=== PATIENT | male | born 1950 | race Caucasian/White ===

== ENCOUNTER 2016-07-16 06:59 | Inpatient (IN) | payer BC, MEDICARE ==
[2016-07-16] MEDS ORDERED: Aspirin 325 mg EC Tablets PO STA (07:18)
[2016-07-16 07:46] LABS: BASO % 0.7 % (0.0-2.0); EOS # 0.1 K/uL (0.0-0.7); MEAN CELL VOLUME 104.9 fL (80.0-94.0); MEAN CORPUSCULAR HEMOGLOBIN 35.9 pg (27.0-31.0); MEAN CORPUSCULAR HGB CONC 34.2 g/dL (33.0-37.0); MEAN PLATELET VOLUME 7.3 fL (7.2-11.7); MONO # 0.6 K/uL (0.0-0.8); MONO % 12.8 % (0.0-10.0); RED CELL DISTRIBUTION WIDTH 13.6 % (11.5-14.5); WHITE BLOOD COUNT 4.5 K/uL (4.8-10.8)
[2016-07-16 07:54] LABS: CHLORIDE 103 mmol/L (98-107)
[2016-07-16 07:55] LABS: POTASSIUM 4.4 mmol/L (3.6-5.2); SODIUM 138 mmol/L (132-148)
[2016-07-16 07:57] LABS: BILIRUBIN,TOTAL 0.8 mg/dL (0.2-1.3); CARBON DIOXIDE 29 mmol/L (22-30); GFR AFRICAN-AMERICAN > 60
[2016-07-16 07:58] LABS: ALB/GLOB RATIO 1.3 (1.0-2.1); ALKALINE PHOSPHATASE 62 U/L (38-126); ALT/SGPT 23 U/L (21-72); AST/SGOT 40 U/L (17-59); BLOOD UREA NITROGEN 15 mg/dL (9-20); GLUCOSE,RANDOM 88 mg/dL (75-110); TOTAL PROTEIN 7.1 g/dL (6.3-8.3)
--- NOTE | 2016-07-16 08:29 | RAD ---
PROCEDURE: CHEST RADIOGRAPH, 1 VIEW HISTORY: chest pain COMPARISON: 04/08/2015 FINDINGS: LUNGS: Clear. PLEURA: No pneumothorax or pleural fluid seen. CARDIOVASCULAR: Normal. OSSEOUS STRUCTURES: No significant abnormalities. VISUALIZED UPPER ABDOMEN: Normal. OTHER FINDINGS: None. IMPRESSION: No active disease.
[2016-07-16] MEDS ORDERED: Enoxaparin 150 mg Syringe SC STA (09:04)
[2016-07-16] MEDS ORDERED: Enoxaparin 80 mg Syringe ONE (09:12)
--- NOTE | 2016-07-16 09:52 | CP.PCM.HP ---
<Sugar Pratibha PERALTA - Last Filed: 07/16/16 10:25> History of Present Illness - History of Present Illness History of Present Illness: Patient is a 65 year old male who presents to the ED with complaint of chest pain. Patient states he had chest pain yesterday morning around 10AM while at working. He states he felt a sharp pain in his chest that lasted approximately one hour before he was able to get home to take his sublingual nitroglycerin. Patient states after taking the nitro, his pain subsided. Patient states he felt the pain again this morning around 5:20AM and again took the sublingual nitro. Patient states that the pain felt very strong but denies a stabbing pain, pressure, or squeezing sensation. Patient states the chest pain subsided after taking the nitro this morning but because it was the second day in a row with chest pain he came to the ED. Patient states he had similar pain 6 months ago, which resolved with sublingual nitro. Patient denies diaphoresis, light headedness, dizziness, palpitations, shortness of breath, orthopnea, nausea, vomiting, fever, chills, leg pain, leg swelling. PMD: Dr. Burris Geology Associate: Dr. Ralph Louie [phone]- last saw on 04/22, future appointment 07/30 Allergies: none PMH: a.fib, multiple blocked arteries requiring stenting, TIA Home meds: nitro 0.4 sublingual, xarelto 20mg, losartan 25mg, atorvastatin 80mg , clopidogrel 75mg, metoprolol succinate 25mg, ASA 81mg PSH: appendectomy age 17, 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 absent: Chest Pain with Activity, Diaphoresis, Dyspnea, Dyspnea on Exertion, Leg Edema, Lightheadedness, Orthopnea, Paroxysmal Nocturnal Dyspnea, Rapid Heart Rate, Slow Heart Rate, Syncope - Respiratory Respiratory: absent: Cough, Dyspnea - Gastrointestinal Gastrointestinal: absent: Abdominal Pain, Diarrhea, Nausea, Vomiting - Genitourinary Genitourinary: absent: Dysuria - Musculoskeletal Musculoskeletal: absent: Back Pain - Neurological Neurological: absent: Dizziness, Weakness - Psychiatric Psychiatric: absent: Abnormal Sleep Pattern Past Patient History - Past Social History Smoking Status: Never Smoked - CARDIAC Hx Cardiac Disorders: Yes Hx Hypertension: Yes - PULMONARY Hx Respiratory Disorders: No - NEUROLOGICAL Hx Neurological Disorder: No - HEENT Hx HEENT Problems: No - RENAL Hx Chronic Kidney Disease: No - ENDOCRINE/METABOLIC Hx Endocrine Disorders: No - HEMATOLOGICAL/ONCOLOGICAL Hx Blood Disorders: No - INTEGUMENTARY Hx Dermatological Problems: No - MUSCULOSKELETAL/RHEUMATOLOGICAL Hx Musculoskeletal Disorders: No Hx Falls: No - GASTROINTESTINAL Hx Gastrointestinal Disorders: No - GENITOURINARY/GYNECOLOGICAL Hx Genitourinary Disorders: No - PSYCHIATRIC Hx Psychophysiologic Disorder: No Hx Substance Use: No - SURGICAL HISTORY Hx Surgeries: Yes Hx Appendectomy: Yes - ANESTHESIA Hx Anesthesia: Yes Hx Anesthesia Reactions: No Meds Allergies/Adverse Reactions: Allergies Allergy/AdvReac Type Severity Reaction Status Date / Time No Known Allergies Allergy Verified 07/16/16 07:06 Physical Exam - Constitutional Appears: Non-toxic, No Acute Distress - Head Exam Head Exam: ATRAUMATIC, NORMOCEPHALIC - Eye Exam Eye Exam: EOMI Additional comments: cataracts - Neck Exam Additional comments: no carotid bruit - Respiratory Exam Respiratory Exam: Clear to Auscultation Bilateral, NORMAL BREATHING PATTERN - Cardiovascular Exam Cardiovascular Exam: +S1, +S2 - GI/Abdominal Exam GI & Abdominal Exam: Normal Bowel Sounds, Soft. absent: Tenderness - Extremities Exam Extremities exam: Negative for: pedal edema, tenderness - Neurological Exam Neurological exam: Alert, Oriented x3 - Psychiatric Exam Psychiatric exam: Normal Affect - Skin Skin Exam: Dry, Warm Results - Vital Signs Recent Vital Signs: Last Vital Signs Temp 98 F 07/16/16 07:05 Pulse 65 07/16/16 09:40 Resp 18 07/16/16 09:40 BP 133/79 07/16/16 09:40 Pulse Ox 98 07/16/16 09:40 - Labs Result Diagrams: 07/16/16 07:39 07/16/16 07:39 Assessment & Plan (1) NSTEMI (non-ST elevated myocardial infarction) Assessment and Plan: admit to telemetry EKG performed in ER with atrial fibrillation, rate of 67 first troponin 0.7490, will continue to trend with EKGs 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- help appreciated patient given ASA 325mg and lovenox 70mg in the ER- will continue therapeutic lovenox 70mg q12h ASA 81mg starting tomorrow AM sublingual nitro prn will check lipid panel, TSH, A1c Status: Acute (2) CAD (coronary artery disease) Assessment and Plan: continue home med clopidogrel 75mg Status: Acute (3) A-fib Assessment and Plan: holding home med xarelto 20mg daily as patient is getting therapeutic lovenox will monitor on telemetry Status: Chronic (4) HTN (hypertension) Assessment and Plan: continue home med losartan 25mg daily, metoprolol succinate 25mg daily Status: Acute (5) HLD (hyperlipidemia) Assessment and Plan: continue equivalent for home med atorvastatin 80mg daily- crestor 40mg daily Status: Acute (6) Prophylactic measure Assessment and Plan: therapeutic lovenox 70mg q12h SCDs Status: Acute <Hugo Nava M - Last Filed: 07/16/16 14:25> Results - Vital Signs Recent Vital Signs: Last Vital Signs Temp 97.3 F L 07/16/16 10:25 Pulse 60 07/16/16 10:25 Resp 18 07/16/16 10:25 BP 144/92 H 07/16/16 10:25 Pulse Ox 99 07/16/16 10:25 - Labs Result Diagrams: 07/16/16 07:39 07/16/16 07:39 Attending/Attestation - Attestation I have personally seen and examined this patient.: Yes I have fully participated in the care of the patient.: Yes I have reviewed all pertinent clinical information: Yes Notes (Text): 07/16/16 14:24 Patient was seen and examined at bedside with the resident at the time of admission We will admit the patient to telemetry unit We will start the ACS protocol We have requested cardiology evaluation and we will follow up recommendations I discussed the plan of care with the resident and agree with the above history and physical and assessment/plan.
--- NOTE | 2016-07-16 09:59 | C.PDOC ---
History Of Present Illness 65-year-old male, PMHx includes atrial fibrillation and stent placement in 2016 , presents to the emergency department with complaints of an episode of chest pain last night. Patient states he took sublingual nitro this morning with relief. No pain in ED. Denies fevers, nausea/vomiting, cough or shortness of breath. Digital Artist Ralph Louie MD. Chief Complaint (Nursing): Chest Pain History Per: Patient History/Exam Limitations: no limitations Past Medical History Reviewed: Historical Data, Nursing Documentation, Vital Signs Vital Signs: Last Vital Signs Temp 98.4 F 07/16/16 16:00 Pulse 58 L 07/16/16 17:10 Resp 12 07/16/16 17:10 BP 112/73 07/16/16 17:09 Pulse Ox 97 07/16/16 17:10 - Medical History PMH: HTN Denies: Chronic Kidney Disease Surgical History: Appendectomy Family History: States: No Known Family Hx - Social History Hx Alcohol Use: No (2-3 beers daily) Hx Substance Use: No - Immunization History Hx Tetanus Toxoid Vaccination: No Hx Influenza Vaccination: No Hx Pneumococcal Vaccination: No Review Of Systems Except As Marked, All Systems Reviewed And Found Negative. Constitutional: Negative for: Fever, Chills Cardiovascular: Positive for: Chest Pain Respiratory: Negative for: Shortness of Breath Gastrointestinal: Negative for: Nausea, Vomiting Neurological: Negative for: Weakness, Numbness, Headache, Dizziness Physical Exam - Physical Exam Appears: Non-toxic, No Acute Distress Skin: Warm, Dry, No Rash Head: Atraumatic, Normacephalic Eye(s): bilateral: Normal Inspection Nose: Normal Neck: Normal ROM Cardiovascular: Rhythm Regular, No Murmur Respiratory: Normal Breath Sounds, No Accessory Muscle Use Gastrointestinal/Abdominal: Soft, No Tenderness Extremity: Normal ROM Neurological/Psych: Oriented x3 ED Course And Treatment - Laboratory Results Result Diagrams: 07/16/16 07:39 07/16/16 07:39 ECG: Interpreted By Me, Viewed By Me ECG Rhythm: Atrial Fibrillation ECG Interpretation: No Acute Changes Rate From EC O2 Sat by Pulse Oximetry: 98 (on RA) Progress Note: Patient troponin found to be elevated. Case discussed w/ Dr Nava , states he will admit patient under his service, and to call cardiology on- call (Dr Robert) for consult. Case also discussed with patients compliance consultant Dr Louie, who states patients compliance with medication is questionable. Disposition - Disposition Disposition: HOSPITALIZED Disposition Time: 08:40 Condition: GOOD - Clinical Impression Clinical Impression: Chest pain, Elevated troponin - [facility] Statement Maci Heath All medical record entries made by the [facility] were at my direction and personally dictated by me. I have reviewed the chart and agree that the record accurately reflects my personal performance of the history, physical exam, medical decision making, and the department course for this patient. I have also personally directed, reviewed, and agree with the discharge instructions and disposition.
[2016-07-16] MEDS: Metoprolol Succinate 25 mg XL Tab PO SCH (11:20)
--- NOTE | 2016-07-16 12:03 | CP.PCM.CON ---
<Juan Parham - Last Filed: 07/16/16 14:51> History of Present Illness - History of Present Illness History of Present Illness: Critical Care Consultation Note Dr. Avila CC: Chest Pain x 1 day HPI: This is a 65 year old male with a PMH notable for Afib, TIA, and triple vessel disease presenting for critical care evaluation of bradycardia. The patient is also noted to have elevated troponins. The patient notes that he has had two episodes of chest pain both relieved with sublingual nitroglycerine. At the onset, the patient states he was running 3 blocks to work yesterday (07/15/16) when he started to experience mid-sternal chest pain. Patient states he went back home and used sublingual nitroglycerin with full relief of the pain. He woke up this morning experiencing another episode of chest pain, which did not resolve fully with sublingual nitro. Patient describes the chest pain as mid-sternal, sharp pain with burning sensation, non- radiating. Patient states each episode lasted around 20 minutes and denies any change with position, respiration, and palpation. Patient denies N/V, diaphoresis, leg swelling or SOB. Patient had similar episode 6 months ago, which relieved with sublingual nitro. Patient reports that he takes aspirin 81mg every morning and is compliant with his medications. Patient last saw his mixer blender, Dr. Ralph Louie. on June 20. Presently, the patient denies fever, chills, chest pain, SOB, abdominal pain, N/V/D/C, changes in bowel/ bladder, and extremity paresthesias. Surgical hx: Appendectomy; triple vessel stenting (one year ago) PMH: Afib, triple vessel disease (CAD), TIA (2016), HTN Allergies: NKDA Home meds: sublingual nitro 0.4; xarelto 20mg; losartan 25mg, atorvastatin 80mg ; clopidogrel 75 mg, metoprolol succinate 25mg, ASA 81mg Social: Denies tobacco use, denies illicit drug use. Patient states he used to drink alcohol every weekend, but stopped 3 months ago. 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 Zhang Louie Review of Systems - Constitutional Constitutional: absent: Chills, Fatigue, Fever - EENT Eyes: absent: Blurred Vision, Change in Vision Ears: absent: Decreased Hearing, Tinnitus Nose/Mouth/Throat: absent: Nose Pain, Facial Pain, Neck Pain - Cardiovascular Cardiovascular: Chest Pain. absent: Pain Radiating to Arm/Neck/Jaw, Orthopnea, Palpitations, Paroxysmal Nocturnal Dyspnea, Rapid Heart Rate, Syncope - Respiratory Respiratory: absent: Cough, Dyspnea, Dyspnea on Exertion - Gastrointestinal Gastrointestinal: absent: Abdominal Pain, Constipation, Diarrhea, Nausea, Vomiting - Genitourinary Genitourinary: absent: Change in Urinary Stream, Difficulty Urinating - Musculoskeletal Musculoskeletal: absent: Arthralgias, Myalgias, Stiffness, Tingling - Integumentary Integumentary: absent: Lesions, Rash, Wounds - Neurological Neurological: absent: Dizziness, Frequent Falls, Headaches, Sensory Deficit, Syncope, Tingling, Tremor, Vertigo, Weakness - Endocrine Endocrine: absent: Cold Intolorance, Heat Intolorance Past Patient History - Past Medical History & Family History Past Medical History?: Yes - Past Social History Smoking Status: Never Smoked - CARDIAC Hx Cardiac Disorders: Yes Hx Atrial Fibrillation: Yes Hx Hypertension: Yes Other/Comment: multiple blocked arteries, had coronary stent placement - PULMONARY Hx Respiratory Disorders: No - NEUROLOGICAL Hx Neurological Disorder: No - HEENT Hx HEENT Problems: No - RENAL Hx Chronic Kidney Disease: No - ENDOCRINE/METABOLIC Hx Endocrine Disorders: No - HEMATOLOGICAL/ONCOLOGICAL Hx Blood Disorders: No - INTEGUMENTARY Hx Dermatological Problems: No - MUSCULOSKELETAL/RHEUMATOLOGICAL Hx Musculoskeletal Disorders: No Hx Falls: No - GASTROINTESTINAL Hx Gastrointestinal Disorders: No - GENITOURINARY/GYNECOLOGICAL Hx Genitourinary Disorders: No - PSYCHIATRIC Hx Psychophysiologic Disorder: No Hx Substance Use: No - SURGICAL HISTORY Hx Surgeries: Yes Hx Appendectomy: Yes Hx Coronary Stent: Yes - ANESTHESIA Hx Anesthesia: Yes Hx Anesthesia Reactions: No Meds Allergies/Adverse Reactions: Allergies Allergy/AdvReac Type Severity Reaction Status Date / Time No Known Allergies Allergy Verified 07/16/16 07:06 - Medications Medications: Current Medications Aspirin (Aspirin Chewable) 81 mg PO DAILY [facility] Clopidogrel Bisulfate (Plavix) 75 mg PO DAILY [facility] Last Admin: 07/16/16 11:20 Dose: 75 mg Enoxaparin Sodium (Lovenox) 70 mg SC Q12 [facility] Losartan Potassium (Cozaar) 25 mg PO DAILY [facility] Metoprolol Succinate (Toprol Xl) 25 mg PO DAILY [facility] Last Admin: 07/16/16 11:20 Dose: Not Given Nitroglycerin (Nitrostat Sl Tab) 0.4 mg SL Q5M PRN PRN Reason: Other Rosuvastatin Calcium (Crestor) 40 mg PO HS [facility] Physical Exam - Constitutional Appears: Non-toxic - Head Exam Head Exam: ATRAUMATIC, NORMAL INSPECTION, NORMOCEPHALIC - Eye Exam Eye Exam: EOMI, Normal appearance Pupil Exam: NORMAL ACCOMODATION - ENT Exam ENT Exam: Mucous Membranes Moist. absent: Mucous Membranes Dry - Neck Exam Neck exam: Positive for: Full Rom. Negative for: Lymphadenopathy, Tenderness - Respiratory Exam Respiratory Exam: Clear to Auscultation Bilateral, NORMAL BREATHING PATTERN. absent: Chest Wall Tenderness, Decreased Breath Sounds, Rales, Rhonchi, Wheezes , Stridor - Cardiovascular Exam Cardiovascular Exam: Bradycardia, REGULAR RHYTHM, +S1, +S2. absent: Diastolic murmur, RRR, Systolic Murmur - GI/Abdominal Exam GI & Abdominal Exam: Normal Bowel Sounds, Soft. absent: Distended, Firm, Guarding, Rigid, Tenderness - Extremities Exam Extremities exam: Positive for: normal capillary refill, normal inspection, pedal pulses present. Negative for: joint swelling, pedal edema, tenderness - Back Exam Back exam: NORMAL INSPECTION. absent: CVA tenderness (L), CVA tenderness (R) - Neurological Exam Neurological exam: Alert, CN II-XII Intact, Oriented x3, Reflexes Normal - Skin Skin Exam: Dry, Intact, Normal Color, Warm Results - Vital Signs Recent Vital Signs: Last Vital Signs Temp 97.3 F L 07/16/16 10:25 Pulse 60 07/16/16 10:25 Resp 18 07/16/16 10:25 BP 144/92 H 07/16/16 10:25 Pulse Ox 99 07/16/16 10:25 - Labs Result Diagrams: 07/16/16 07:39 07/16/16 07:39 Assessment & Plan (1) NSTEMI (non-ST elevated myocardial infarction) Status: Acute (2) Bradycardia Status: Acute (3) Elevated troponin level Status: Acute (4) CAD (coronary artery disease) Status: Chronic (5) A-fib Status: Chronic (6) Irregular cardiac rhythm Status: Chronic - Assessment and Plan (Free Text) Plan: Patient status: -Transferred to ICU; hemodynamically stable Neuro: -A&OX3 -stable Cardiovascular: -07/16/16- for cardaic cath with Dr. Dumont (for Dr. Robert) -Dr. Franklin on consult for bradyarrythmia and afib -YOBANI score: 6 (41% risk) -[id number]- 5 (PO anticoagulation indicated >/= 2) -HASBLED- 3 (high risk for PO anticoagulation) -NSTEMI (acute) -cardiology consulted (Dr. Robert) -continue current medications -Trend troponins with EC.7490 > 0.5420 -continue ASA 81mg and sublingual nitro 0.4mg prn -CAD -continue Clopidogrel 75mg -Afib (chronic) -continue ASA 81mg, Lovenox 70mg SC Q12 -HTN (currently 144/92) -continue losartan 25mg PO, metoprolol succinate 25mg PO daily -Pro-BNP wnl (719) -07/16/16 ECG: Afib with slow ventricular response; 58 BPM -07/16/16 ECG: A.fib; 67 BPM -04/08/15 ECHO: LVEF 72%; normal LV systolic function; Normal chamber size; Trace MR; mild TR Pulmonary: -07/16/16 CXR: no active disease; unremarkable. Gastrointestinal: -No acute issues Hematology: -No acute issues Endocrine: -No acute issues Renal: -No acute issues Musculoskeletal: -No acute issues Genitourinary: -No acute issues Infectious disease: -No acute issues GI prophylaxis: Pepcid 20mg PO daily DVT prophylaxis: Lovenox 70mg SC Q12h, SCDs Other prophylaxis: Aspirin 81mg PO daily Case discussed with Dr. Austin Parham PGY1 - Date & Time Date: 07/16/16 Time: 12:03 <Gamaliel Avila - Last Filed: 07/16/16 17:44> Meds - Medications Medications: Current Medications Aspirin (Aspirin Chewable) 81 mg PO DAILY [facility] Clopidogrel Bisulfate (Plavix) 75 mg PO DAILY [facility] Last Admin: 07/16/16 11:20 Dose: 75 mg Enoxaparin Sodium (Lovenox) 70 mg SC Q12 [facility] Famotidine (Pepcid) 20 mg PO DAILY [facility] Losartan Potassium (Cozaar) 25 mg PO DAILY [facility] Metoprolol Succinate (Toprol Xl) 25 mg PO DAILY [facility] Last Admin: 07/16/16 11:20 Dose: Not Given Nitroglycerin (Nitrostat Sl Tab) 0.4 mg SL Q5M PRN PRN Reason: Other Rosuvastatin Calcium (Crestor) 40 mg PO HS [facility] Results - Vital Signs Recent Vital Signs: Last Vital Signs Temp 98.4 F 07/16/16 16:00 Pulse 58 L 07/16/16 17:10 Resp 12 07/16/16 17:10 BP 112/73 07/16/16 17:09 Pulse Ox 97 07/16/16 17:10 - Labs Result Diagrams: 07/16/16 07:39 07/16/16 07:39 Labs: Laboratory Results - last 24 hr 07/16/16 07/16/16 07/16/16 14:05 14:05 16:58 PT 11.2 INR 1.0 APTT 42 H Hemoglobin A1c 5.4 Total Creatine Kinase 101 CK-MB (Mass) 3.17 Troponin I, Quant 0.5420 H* Triglycerides 75 Cholesterol 201 H LDL Cholesterol Direct 147 H HDL Cholesterol 48 Thyroxine (T4) 6.62 TSH 3rd Generation 1.23 Attending/Attestation - Attestation I have personally seen and examined this patient.: Yes I have fully participated in the care of the patient.: Yes I have reviewed all pertinent clinical information: Yes Notes (Text): 07/16/16 17:42 Patient seen and examined. 65-year-old male admitted with chest pain and transferred to ICU for elevated troponins and bradycardia. Status post cardiac cath with patent stents but severe disease of circumflex and RCA continue medical management for now Case discussed with cardiology
--- NOTE | 2016-07-16 12:48 | CP.PCM.CON ---
History of Present Illness - History of Present Illness History of Present Illness: 65 years old with coronary artery disease post percutaneous intervention on multiple occasions with stent deployment, the latest was few weeks ago at [place]. He was admitted through the emergency department with chest pain, no acute EKG changes or arrhythmia, had minimally elevated troponin. The pain returned and he is on aspirin and Plavix in addition to Xarelto for A. fib. Currently he is pain-free with non-ST elevation [place] and high YOBANI score would need to have invasive management. Continue Xarelto for A. fib and DVT prevention , cath was done by dr Bangura, sig circ, NL LV for PCI Review of Systems - Constitutional Constitutional: Weakness - EENT Eyes: absent: Discharge Ears: absent: Ear Discharge, Dizziness Nose/Mouth/Throat: absent: Epistaxis - Cardiovascular Cardiovascular: Chest Pain. absent: Acrocyanosis, Diaphoresis, Palpitations, Syncope - Respiratory Respiratory: absent: Cough, Dyspnea, Hemoptysis - Gastrointestinal Gastrointestinal: absent: Abdominal Pain, Diarrhea, Vomiting - Genitourinary Genitourinary: absent: Change in Urinary Stream Past Patient History - Past Medical History & Family History Past Medical History?: Yes - Past Social History Smoking Status: Never Smoked - CARDIAC Hx Cardiac Disorders: Yes Hx Atrial Fibrillation: Yes Hx Hypertension: Yes Other/Comment: multiple blocked arteries, had coronary stent placement - PULMONARY Hx Respiratory Disorders: No - NEUROLOGICAL Hx Neurological Disorder: No - HEENT Hx HEENT Problems: No - RENAL Hx Chronic Kidney Disease: No - ENDOCRINE/METABOLIC Hx Endocrine Disorders: No - HEMATOLOGICAL/ONCOLOGICAL Hx Blood Disorders: No - INTEGUMENTARY Hx Dermatological Problems: No - MUSCULOSKELETAL/RHEUMATOLOGICAL Hx Musculoskeletal Disorders: No Hx Falls: No - GASTROINTESTINAL Hx Gastrointestinal Disorders: No - GENITOURINARY/GYNECOLOGICAL Hx Genitourinary Disorders: No - PSYCHIATRIC Hx Psychophysiologic Disorder: No Hx Substance Use: No - SURGICAL HISTORY Hx Surgeries: Yes Hx Appendectomy: Yes Hx Coronary Stent: Yes - ANESTHESIA Hx Anesthesia: Yes Hx Anesthesia Reactions: No Meds Allergies/Adverse Reactions: Allergies Allergy/AdvReac Type Severity Reaction Status Date / Time No Known Allergies Allergy Verified 07/16/16 07:06 - Medications Medications: Current Medications Aspirin (Aspirin Chewable) 81 mg PO DAILY [facility] Clopidogrel Bisulfate (Plavix) 75 mg PO DAILY [facility] Last Admin: 07/16/16 11:20 Dose: 75 mg Enoxaparin Sodium (Lovenox) 70 mg SC Q12 [facility] Losartan Potassium (Cozaar) 25 mg PO DAILY [facility] Metoprolol Succinate (Toprol Xl) 25 mg PO DAILY [facility] Last Admin: 07/16/16 11:20 Dose: Not Given Nitroglycerin (Nitrostat Sl Tab) 0.4 mg SL Q5M PRN PRN Reason: Other Rosuvastatin Calcium (Crestor) 40 mg PO HS [facility] Physical Exam - Constitutional Appears: Non-toxic - Head Exam Head Exam: ATRAUMATIC - Eye Exam Eye Exam: EOMI - ENT Exam ENT Exam: Mucous Membranes Moist - Neck Exam Neck exam: Negative for: Lymphadenopathy, Thyromegaly - Respiratory Exam Respiratory Exam: Clear to Auscultation Bilateral. absent: Chest Wall Tenderness, Rales - Cardiovascular Exam Cardiovascular Exam: REGULAR RHYTHM, Systolic Murmur - GI/Abdominal Exam GI & Abdominal Exam: Normal Bowel Sounds. absent: Organomegaly - Rectal Exam Rectal Exam: Deferred - Extremities Exam Extremities exam: Positive for: normal capillary refill. Negative for: calf tenderness - Neurological Exam Neurological exam: Alert, Oriented x3 - Psychiatric Exam Psychiatric exam: Normal Mood - Skin Skin Exam: Dry Results - Vital Signs Recent Vital Signs: Last Vital Signs Temp 97.3 F L 07/16/16 10:25 Pulse 60 07/16/16 10:25 Resp 18 07/16/16 10:25 BP 144/92 H 07/16/16 10:25 Pulse Ox 99 07/16/16 10:25 - Labs Result Diagrams: 07/16/16 07:39 07/16/16 07:39 Assessment & Plan (1) NSTEMI (non-ST elevated myocardial infarction) Status: Acute (2) A-fib Status: Chronic
[2016-07-16 14:45] LABS: T4 6.62 ug/dL (5.5-11.0)
[2016-07-16] MEDS ORDERED: Iohexol 350mg/ml 100 ML ONE ×2 (14:54→15:38)
[2016-07-16 14:59] LABS: THYROID STIMULATING HORMONE 1.23 mIU/L (0.46-4.68)
[2016-07-16] MEDS ORDERED: Nitroglycerin 2% Ointment Foilpak UD TOP ONE (15:29)
--- NOTE | 2016-07-16 16:26 | CP.PCM.CON ---
History of Present Illness - History of Present Illness History of Present Illness: Cardiology Consult for Dr. Franklin Reason for consult: AFib and bradycardia 65 y/o male with PMHx of AFib, CAD (stent placed x3), TIA who came into the ED c/o intermittent chest pain for two days. Pt states while at work, he ran 3 blocks and became severely short of breath and developed pressure-like , non-radiating, retrosternal chest pain. The patient went home and took sublingual nitro which relieved his pain. Pt again developed the same chest pain at last night and this morning, both times relieved by SL nitro, which prompted him to the ER. Pt reports he had similar pain 6 months ago when he first received SL nitro which resolved the pain. In the ER, the patient was found to have a NSTEMI with an elevated troponin at 0.7490. Pt denies lightheadedness, dizziness, palpitations, nausea, vomiting, fever, chills. Pt states he has never had a catheterization or echocardiogram. 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 Review of Systems - Constitutional Constitutional: Fatigue. absent: Fever - Cardiovascular Cardiovascular: Chest Pain. absent: Irregular Heart Rhythm - Respiratory Respiratory: absent: Cough, Dyspnea - Gastrointestinal Gastrointestinal: absent: Diarrhea, Vomiting - Integumentary Integumentary: absent: New Lesions, Rash - Neurological Neurological: absent: Dizziness, Syncope Past Patient History - Past Medical History & Family History Past Medical History?: Yes - Past Social History Smoking Status: Never Smoked - CARDIAC Hx Cardiac Disorders: Yes Hx Atrial Fibrillation: Yes Hx Hypertension: Yes Other/Comment: multiple blocked arteries, had coronary stent placement - PULMONARY Hx Respiratory Disorders: No - NEUROLOGICAL Hx Neurological Disorder: No - HEENT Hx HEENT Problems: No - RENAL Hx Chronic Kidney Disease: No - ENDOCRINE/METABOLIC Hx Endocrine Disorders: No - HEMATOLOGICAL/ONCOLOGICAL Hx Blood Disorders: No - INTEGUMENTARY Hx Dermatological Problems: No - MUSCULOSKELETAL/RHEUMATOLOGICAL Hx Musculoskeletal Disorders: No Hx Falls: No - GASTROINTESTINAL Hx Gastrointestinal Disorders: No - GENITOURINARY/GYNECOLOGICAL Hx Genitourinary Disorders: No - PSYCHIATRIC Hx Psychophysiologic Disorder: No Hx Substance Use: No - SURGICAL HISTORY Hx Surgeries: Yes Hx Appendectomy: Yes Hx Coronary Stent: Yes - ANESTHESIA Hx Anesthesia: Yes Hx Anesthesia Reactions: No Meds Allergies/Adverse Reactions: Allergies Allergy/AdvReac Type Severity Reaction Status Date / Time No Known Allergies Allergy Verified 07/16/16 07:06 - Medications Medications: Current Medications Aspirin (Aspirin Chewable) 81 mg PO DAILY [facility] Clopidogrel Bisulfate (Plavix) 75 mg PO DAILY [facility] Last Admin: 07/16/16 11:20 Dose: 75 mg Enoxaparin Sodium (Lovenox) 70 mg SC Q12 [facility] Famotidine (Pepcid) 20 mg PO DAILY [facility] Losartan Potassium (Cozaar) 25 mg PO DAILY [facility] Metoprolol Succinate (Toprol Xl) 25 mg PO DAILY [facility] Last Admin: 07/16/16 11:20 Dose: Not Given Nitroglycerin (Nitrostat Sl Tab) 0.4 mg SL Q5M PRN PRN Reason: Other Rosuvastatin Calcium (Crestor) 40 mg PO [facility] Physical Exam - Constitutional Appears: Well, No Acute Distress - Head Exam Head Exam: ATRAUMATIC, NORMAL INSPECTION, NORMOCEPHALIC - Cardiovascular Exam Cardiovascular Exam: RRR, +S1, +S2 - GI/Abdominal Exam GI & Abdominal Exam: Normal Bowel Sounds, Soft. absent: Tenderness - Extremities Exam Extremities exam: Positive for: normal inspection. Negative for: pedal edema - Neurological Exam Neurological exam: Alert, Oriented x3 - Skin Skin Exam: Intact, Normal Color, Warm Results - Vital Signs Recent Vital Signs: Last Vital Signs Temp 97.3 F L 07/16/16 10:25 Pulse 64 07/16/16 12:45 Resp 18 07/16/16 14:46 BP 144/92 H 07/16/16 10:25 Pulse Ox 100 07/16/16 14:46 - Labs Result Diagrams: 07/16/16 07:39 07/16/16 07:39 Labs: Laboratory Results - last 24 hr 07/16/16 07/16/16 14:05 14:05 Hemoglobin A1c 5.4 Total Creatine Kinase 101 CK-MB (Mass) 3.17 Troponin I, Quant 0.5420 H* Triglycerides 75 Cholesterol 201 H LDL Cholesterol Direct 147 H HDL Cholesterol 48 Thyroxine (T4) 6.62 TSH 3rd Generation 1.23 Assessment & Plan (1) Bradycardia Assessment and Plan: Pt with varying heart rates in the 40's and 80's, possible sick-sinus syndrome Varying heart rates may also be due to ischemic changes in the heart from NSTEMI Will await full cardiac workup Status: Acute (2) NSTEMI (non-ST elevated myocardial infarction) Assessment and Plan: Continue current medical management with ASA and plavix Pt will undergo cardiac catherterization today Monitor closely for hemodynamic instability Status: Acute
--- NOTE | 2016-07-16 19:26 | CARDCATH ---
PROCEDURE DATE: 07/16/2016 I was requested by Dr. Robert, the consulting ceramic tile installation helper, to perform cardiac catheterization on thi s patient. The patient is a 65-year-old male who has a history of coronary artery disease an d history of multiple coronary stenting in the past. The most recent one was in [facility] about a year ago, according to the patient. The patient has chronic atrial fibrillation and is on Xa relto. He presents because of chest pain. Non-ST elevation myocardial infarction is ruled in. Card iac catheterization was recommended. The procedure and its risks were fully explained to the patient who understood them and agreed for the procedure. PROCEDURE: After local infiltration with 1% lidocaine, a 6-[place] sheath was placed in right femoral artery. Left and right coronary angiography was performed with 6-[place] JL4 and JR4 Ronny diagno stic catheter. Left ventriculogram was performed with a 6-[place] pigtail catheter. The patient tole rated the procedure well without any complications. ANGIOGRAPHIC FINDINGS: Selective injection of left coronary artery revealed left main to be a normal vessel. Left main trifurcated into a medium sized LAD, medium sized circumflex and a small ramus br anch. That ramus branch had 80% ostial stenosis. The LAD was a medium sized vessel that had patent stents in its entire mid segment after the origin of the first septal perforators. The stents were p atent and there was no significant otherwise disease in the LAD circulation. The circumflex artery w as a medium sized codominant vessel that had 80% stenosis in its mid portion involving the origin of a small first obtuse marginal branch. The stent site in the very distal part of the circumflex arter y was patent. Selective injection of right coronary artery revealed a medium-sized codominant vessel . Proximal stent was patent and there was 60%-70% eccentric stenosis in the mid to distal portion. Left ventriculogram was performed in [place] projection revealing normal wall motion. Ejection fraction estimated at 55%. CONCLUSION: Significant stenosis of the mid circumflex artery of 80% in severity, with borderline st enosis of 60%-70% in the mid to distal right coronary artery. RECOMMENDATIONS: PCI to circumflex artery will be considered and the case will be discussed with Dr. Robert. Jhoan Bangura MD cc:Holden Robert MD [id number] TT: 07/16/2016 19:25:33 rn
[2016-07-16] MEDS: Enoxaparin 80 mg Syringe SC SCH (22:51)
[2016-07-17 06:38] LABS: BASO % 0.4 % (0.0-2.0); EOS # 0.1 K/uL (0.0-0.7); EOS % 1.1 % (0.0-4.0); HEMATOCRIT 41.4 % (35.0-51.0); LYMPH # 0.9 K/uL (1.0-4.3); LYMPH % 18.1 % (20.0-40.0); MEAN CELL VOLUME 104.1 fL (80.0-94.0); MEAN CORPUSCULAR HGB CONC 34.6 g/dL (33.0-37.0); MEAN PLATELET VOLUME 7.5 fL (7.2-11.7); MONO # 0.6 K/uL (0.0-0.8); MONO % 11.2 % (0.0-10.0); NRBC % 0.1 % (0.0-2.0); RED CELL DISTRIBUTION WIDTH 13.5 % (11.5-14.5)
[2016-07-17 06:55] LABS: CHLORIDE 104 mmol/L (98-107); SODIUM 136 mmol/L (132-148)
[2016-07-17 06:56] LABS: POTASSIUM 3.9 mmol/L (3.6-5.2)
[2016-07-17 06:58] LABS: ALB/GLOB RATIO 1.3 (1.0-2.1); ALKALINE PHOSPHATASE 62 U/L (38-126); ALT/SGPT 24 U/L (21-72); AST/SGOT 35 U/L (17-59); BLOOD UREA NITROGEN 13 mg/dL (9-20); CARBON DIOXIDE 24 mmol/L (22-30); GFR AFRICAN-AMERICAN > 60; GLUCOSE,RANDOM 87 mg/dL (75-110); TOTAL PROTEIN 6.5 g/dL (6.3-8.3)
[2016-07-17 06:59] LABS: CALCIUM 8.7 mg/dl (8.6-10.4); MAGNESIUM 1.9 mg/dL (1.6-2.3); PHOSPHOROUS 3.3 mg/dL (2.5-4.5)
[2016-07-17] MEDS ORDERED: Magnesium Sulfate 1 gm in D5W 1 GM/100 ML BAG IVPB ONE (08:39)
[2016-07-17] MEDS: Metoprolol Succinate 25 mg XL Tab PO SCH (09:10)
[2016-07-17] MEDS: Enoxaparin 80 mg Syringe SC SCH ×2 (09:11→23:19)
--- NOTE | 2016-07-17 12:10 | CP.PCM.PN ---
Subjective - Date & Time of Evaluation Date of Evaluation: 07/17/16 Time of Evaluation: 12:06 - Subjective Subjective: Progress Note for Dr. Franklin Pt seen and examined at bedside. Pt doing well with no complaints at this time. Pt underwent cardiac cath yesterday with no complications. Denies CP, SOB, N/V/D , headaches. Objective - Vital Signs/Intake and Output Vital Signs (last 24 hours): Temp Pulse Resp BP Pulse Ox 97.9 F 68 12 108/77 96 07/17/16 08:00 07/17/16 00:15 07/17/16 00:15 07/17/16 00:15 07/17/16 00:15 Intake and Output: 07/17/16 07/17/16 06:59 18:59 Intake Total 100 450 Output Total 450 300 Balance -350 150 - Medications Medications: Current Medications Acetaminophen (Tylenol 325mg Tab) 650 mg PO Q4H PRN PRN Reason: Headache Last Admin: 07/17/16 01:51 Dose: 650 mg Aspirin (Aspirin Chewable) 81 mg PO DAILY [facility] Last Admin: 07/17/16 09:10 Dose: 81 mg Clopidogrel Bisulfate (Plavix) 75 mg PO DAILY [facility] Last Admin: 07/17/16 09:10 Dose: 75 mg Enoxaparin Sodium (Lovenox) 70 mg SC Q12 [facility] Last Admin: 07/17/16 09:11 Dose: 70 mg Famotidine (Pepcid) 20 mg PO DAILY [facility] Last Admin: 07/17/16 09:10 Dose: 20 mg Losartan Potassium (Cozaar) 25 mg PO DAILY [facility] Last Admin: 07/17/16 09:10 Dose: 25 mg Metoprolol Succinate (Toprol Xl) 25 mg PO DAILY [facility] Last Admin: 07/17/16 09:10 Dose: 25 mg Nitroglycerin (Nitrostat Sl Tab) 0.4 mg SL Q5M PRN PRN Reason: Other Rosuvastatin Calcium (Crestor) 40 mg PO HS [facility] Last Admin: 07/16/16 22:47 Dose: 40 mg - Labs Labs: 07/17/16 06:31 07/17/16 06:31 PT 11.3 SECONDS (9.7-12.2) 07/17/16 06:31 INR 1.0 07/17/16 06:31 APTT 40 SECONDS (21-34) H 07/17/16 06:31 - Constitutional Appears: Well, No Acute Distress - Head Exam Head Exam: ATRAUMATIC, NORMAL INSPECTION, NORMOCEPHALIC - Respiratory Exam Respiratory Exam: Clear to Ausculation Bilateral, NORMAL BREATHING PATTERN. absent: Rhonchi, Wheezes - Cardiovascular Exam Cardiovascular Exam: RRR, +S1, +S2 - GI/Abdominal Exam GI & Abdominal Exam: Soft, Normal Bowel Sounds. absent: Tenderness - Extremities Exam Extremities Exam: Normal Inspection. absent: Calf Tenderness, Pedal Edema - Neurological Exam Neurological Exam: Alert, Awake, Oriented x3 - Skin Skin Exam: Intact, Normal Color, Warm Assessment and Plan (1) Bradycardia Assessment & Plan: Heart rate in the 60's overnight Pt remains in A-fib No immediate need for pacemaker at this time Status: Acute (2) NSTEMI (non-ST elevated myocardial infarction) Assessment & Plan: Troponins downtrending Pt underwent cardiac cath which showed 80% stenosis of mid circumflex artery, which will likely need a stent placed Continue current medical management Status: Acute
--- NOTE | 2016-07-17 14:20 | PN ---
DATE: 07/17/2016 The patient denies any chest pain. No reported groin bleeding. PHYSICAL EXAMINATION: VITAL SIGNS: Blood pressure 108/77, heart rate 68, temperature 98, respirations 12. HEENT: Normocephalic. CHEST: Clear. HEART: S1, S2 regular. EXTREMITIES: No edema. LABORATORIES: Hemoglobin and hematocrit 14.3 and 41.4. White count and platelet count are 5 and 154 ,000. Today's SMA-7 is entirely within normal limits. Troponins were as follows, 0.749, 0.542 and 0 .36, a declining pattern. ASSESSMENT: 1. Status post non-ST elevation myocardial infarction. 2. Two-vessel coronary artery disease with significant disease of the mid circumflex artery and bord yulissa disease of the mid to distal right coronary artery. RECOMMENDATIONS: Case was discussed at length with the patient via tow mate who is an RN in the CCU. A staged PCI is recommended with intervention on the likely culprit lesion which is the mid circumflex artery. The patient agreed for transfer to [facility] for the procedu re today. The patient has received already his aspirin, Plavix and subcutaneous Lovenox. The patien t will be also maintained on Toprol and Crestor therapy. Jhoan Bangura MD cc: [id number] TT: 07/17/2016 14:20:03 Confirmation # [id number] Dictation # [id number]
--- NOTE | 2016-07-17 14:53 | CP.CCUPN ---
<DioneBharathiJuan - Last Filed: 07/17/16 14:50> CCU Subjective - Physician Review Subjective (Free Text): 07/17/16 14:50 Patient seen and examined at the bedside this morning. No acute distress. No acute events overnight. Nursing staff reports no issues. The patient is day 1 s/p cardiac catheterization. The patient is for transfer to [facility] – [place] for PCI today. The patient has no complaints this morning. The patient denies fever, chills, headahce, chest pain, SOB, abdominal pain, changes in bowel/bladder, and extremity paresthesias. Today on rounds, the patients magnesium was replaced. CCU Objective - Vital Signs / Intake & Output Vital Signs (Last 4 hours): Vital Signs Temp 07/17/16 12:00 97.9 F Intake and Output (Last 8hrs): Intake & Output 07/16/16 07/17/16 07/17/16 22:59 06:59 14:59 Intake Total 320 0 450 Output Total 300 450 550 Balance 20 -450 -100 Intake: Intake, IV Amount 0 0 100 Left Forearm 0 0 100 Oral 320 0 350 Output: Urine 300 450 550 Urine, Voided 300 450 550 Other: # Voids Urine, Voided 1 - Physical Exam Head: Positive for: Atraumatic, Normocephalic Pupils: Positive for: PERRL Extroacular Muscles: Positive for: EOMI Conjunctiva: Positive for: Normal Mouth: Positive for: Moist Mucous Membranes. Negative for: Drooling Neck: Positive for: Normal Range of Motion. Negative for: JVD, Lymphadenopathy Respiratory/Chest: Positive for: Clear to Auscultation, Good Air Exchange. Negative for: Respiratory Distress, Accessory Muscle Use, Rales, Rhonchi Cardiovascular: Positive for: Normal S1, S2, Irregular Rhythm. Negative for: Regular Rate and Rhythm, Murmurs, Bradycardic Abdomen: Positive for: Normal Bowel Sounds. Negative for: Tenderness, Distention, Peritoneal Signs, Rebound, Guarding Back: Positive for: Normal Inspection. Negative for: CVA Tenderness Upper Extremity: Positive for: Normal Inspection, Normal ROM, NORMAL PULSES, Neurovascularly Intact. Negative for: Cyanosis, Edema, Tenderness Lower Extremity: Positive for: Normal Inspection, NORMAL PULSES, Normal ROM, Neurovascularly Intact. Negative for: Edema, CALF TENDERNESS, Tenderness Neurological: Positive for: GCS=15, CN II-XII Intact, Speech Normal Skin: Positive for: Warm, Dry, Normal Color. Negative for: Rashes Psychiatric: Positive for: Alert, Oriented x 3 - Medications Active Medications: Active Medications Generic Name Dose Route Start Last Admin Trade Name Freq PRN Reason Stop Dose Admin Acetaminophen 650 mg 07/17/16 01:42 07/17/16 01:51 Tylenol 325mg Tab PO 650 mg Q4H PRN Administration Headache Aspirin 81 mg 07/17/16 10:00 07/17/16 09:10 Aspirin Chewable PO 81 mg DAILY MICHAEL Administration Clopidogrel Bisulfate 75 mg 07/16/16 10:30 07/17/16 09:10 Plavix PO 75 mg DAILY MICHAEL Administration Enoxaparin Sodium 70 mg 07/16/16 22:00 07/17/16 09:11 Lovenox SC 70 mg Q12 MICHAEL Administration Famotidine 20 mg 07/17/16 10:00 07/17/16 09:10 Pepcid PO 20 mg DAILY MICHAEL Administration Losartan Potassium 25 mg 07/17/16 10:00 07/17/16 09:10 Cozaar PO 25 mg DAILY MICHAEL Administration Metoprolol Succinate 25 mg 07/16/16 10:45 07/17/16 09:10 Toprol Xl PO 25 mg DAILY MICHAEL Administration Nitroglycerin 0.4 mg 07/16/16 10:36 Nitrostat Sl Tab SL Q5M PRN Other Rosuvastatin Calcium 40 mg 07/16/16 22:00 07/16/16 22:47 Crestor PO 40 mg HS MICHAEL Administration - Patient Studies Lab Studies: Lab Studies 07/17/16 07/17/16 07/17/16 Range/Units 06:31 06:31 06:31 WBC 5.0 (4.8-10.8) K/uL RBC 3.98 L (4.40-5.90) Mil/uL Hgb 14.3 (12.0-18.0) g/dL Hct 41.4 (35.0-51.0) % MCV 104.1 H (80.0-94.0) fL MCH 36.0 H (27.0-31.0) pg MCHC 34.6 (33.0-37.0) g/dL RDW 13.5 (11.5-14.5) % Plt Count 154 (130-400) K/uL MPV 7.5 (7.2-11.7) fL Neut % (Auto) 69.2 (50.0-75.0) % Lymph % (Auto) 18.1 L (20.0-40.0) % [place] % (Auto) 11.2 H (0.0-10.0) % Eos % (Auto) 1.1 (0.0-4.0) % Baso % (Auto) 0.4 (0.0-2.0) % Neut # 3.5 (1.8-7.0) K/uL Lymph # 0.9 L (1.0-4.3) K/uL [place] # 0.6 (0.0-0.8) K/uL Eos # 0.1 (0.0-0.7) K/uL Baso # 0.0 (0.0-0.2) K/uL PT 11.3 (9.7-12.2) SECONDS INR 1.0 APTT 40 H (21-34) SECONDS Sodium 136 (132-148) mmol/L Potassium 3.9 (3.6-5.2) mmol/L Chloride 104 (98-107) mmol/L Carbon Dioxide 24 (22-30) mmol/L Anion Gap 12 (10-20) BUN 13 (9-20) mg/dL Creatinine 0.8 (0.8-1.5) MG/DL Est GFR ( Amer) > 60 Est GFR (Non-Af Amer) > 60 Random Glucose 87 (75-110) mg/dL Calcium 8.7 (8.6-10.4) mg/dl Phosphorus 3.3 (2.5-4.5) mg/dL Magnesium 1.9 (1.6-2.3) mg/dL Total Bilirubin 1.0 (0.2-1.3) mg/dL AST 35 (17-59) U/L ALT 24 (21-72) U/L Alkaline Phosphatase 62 (38-126) U/L Total Creatine Kinase (55-170) U/L CK-MB (Mass) (0.0-3.38) ng/mL Troponin I, Quant (0.00-0.120) ng/mL Total Protein 6.5 (6.3-8.3) g/dL Albumin 3.6 (3.5-5.0) g/dL Globulin 2.9 (2.2-3.9) gm/dL Albumin/Globulin Ratio 1.3 (1.0-2.1) Triglycerides (0-149) mg/dL Cholesterol (0-199) mg/dL LDL Cholesterol Direct (0-129) mg/dL HDL Cholesterol (30-70) mg/dL Thyroxine (T4) (5.5-11.0) ug/dL TSH 3rd Generation (0.46-4.68) mIU/L 07/16/16 07/16/16 07/16/16 Range/Units 20:01 16:58 14:05 WBC (4.8-10.8) K/uL RBC (4.40-5.90) Mil/uL Hgb (12.0-18.0) g/dL Hct (35.0-51.0) % MCV (80.0-94.0) fL MCH (27.0-31.0) pg MCHC (33.0-37.0) g/dL RDW (11.5-14.5) % Plt Count (130-400) K/uL MPV (7.2-11.7) fL Neut % (Auto) (50.0-75.0) % Lymph % (Auto) (20.0-40.0) % [place] % (Auto) (0.0-10.0) % Eos % (Auto) (0.0-4.0) % Baso % (Auto) (0.0-2.0) % Neut # (1.8-7.0) K/uL Lymph # (1.0-4.3) K/uL [place] # (0.0-0.8) K/uL Eos # (0.0-0.7) K/uL Baso # (0.0-0.2) K/uL PT 11.2 (9.7-12.2) SECONDS INR 1.0 APTT 42 H (21-34) SECONDS Sodium (132-148) mmol/L Potassium (3.6-5.2) mmol/L Chloride (98-107) mmol/L Carbon Dioxide (22-30) mmol/L Anion Gap (10-20) BUN (9-20) mg/dL Creatinine (0.8-1.5) MG/DL Est GFR ( Amer) Est GFR (Non-Af Amer) Random Glucose (75-110) mg/dL Calcium (8.6-10.4) mg/dl Phosphorus (2.5-4.5) mg/dL Magnesium (1.6-2.3) mg/dL Total Bilirubin (0.2-1.3) mg/dL AST (17-59) U/L ALT (21-72) U/L Alkaline Phosphatase (38-126) U/L Total Creatine Kinase 95 101 (55-170) U/L CK-MB (Mass) 1.78 3.17 (0.0-3.38) ng/mL Troponin I, Quant 0.3600 H* 0.5420 H* (0.00-0.120) ng/mL Total Protein (6.3-8.3) g/dL Albumin (3.5-5.0) g/dL Globulin (2.2-3.9) gm/dL Albumin/Globulin Ratio (1.0-2.1) Triglycerides 75 (0-149) mg/dL Cholesterol 201 H (0-199) mg/dL LDL Cholesterol Direct 147 H (0-129) mg/dL HDL Cholesterol 48 (30-70) mg/dL Thyroxine (T4) 6.62 (5.5-11.0) ug/dL TSH 3rd Generation 1.23 (0.46-4.68) mIU/L Laboratory Results - last 24 hr 07/16/16 07/16/16 07/16/16 14:05 16:58 20:01 WBC RBC Hgb Hct MCV MCH MCHC RDW Plt Count MPV Neut % (Auto) Lymph % (Auto) [place] % (Auto) Eos % (Auto) Baso % (Auto) Neut # Lymph # [place] # Eos # Baso # PT 11.2 INR 1.0 APTT 42 H Sodium Potassium Chloride Carbon Dioxide Anion Gap BUN Creatinine Est GFR ( Amer) Est GFR (Non-Af Amer) Random Glucose Calcium Phosphorus Magnesium Total Bilirubin AST ALT Alkaline Phosphatase Total Creatine Kinase 101 95 CK-MB (Mass) 3.17 1.78 Troponin I, Quant 0.5420 H* 0.3600 H* Total Protein Albumin Globulin Albumin/Globulin Ratio Triglycerides 75 Cholesterol 201 H LDL Cholesterol Direct 147 H HDL Cholesterol 48 Thyroxine (T4) 6.62 TSH 3rd Generation 1.23 07/17/16 07/17/16 07/17/16 06:31 06:31 06:31 WBC 5.0 RBC 3.98 L Hgb 14.3 Hct 41.4 MCV 104.1 H MCH 36.0 H MCHC 34.6 RDW 13.5 Plt Count 154 MPV 7.5 Neut % (Auto) 69.2 Lymph % (Auto) 18.1 L [place] % (Auto) 11.2 H Eos % (Auto) 1.1 Baso % (Auto) 0.4 Neut # 3.5 Lymph # 0.9 L [place] # 0.6 Eos # 0.1 Baso # 0.0 PT 11.3 INR 1.0 APTT 40 H Sodium 136 Potassium 3.9 Chloride 104 Carbon Dioxide 24 Anion Gap 12 BUN 13 Creatinine 0.8 Est GFR ( Amer) > 60 Est GFR (Non-Af Amer) > 60 Random Glucose 87 Calcium 8.7 Phosphorus 3.3 Magnesium 1.9 Total Bilirubin 1.0 AST 35 ALT 24 Alkaline Phosphatase 62 Total Creatine Kinase CK-MB (Mass) Troponin I, Quant Total Protein 6.5 Albumin 3.6 Globulin 2.9 Albumin/Globulin Ratio 1.3 Triglycerides Cholesterol LDL Cholesterol Direct HDL Cholesterol Thyroxine (T4) TSH 3rd Generation Review of Systems - Review of Systems All systems: reviewed and no additional remarkable complaints except - EENT Eyes: absent: Blind Spots, Blurred Vision Ears: absent: Decreased Hearing, Tinnitus Nose/Mouth/Throat: absent: Nose Pain, Facial Pain, Neck Pain - Cardiovascular Cardiovascular: absent: Chest Pain, Lightheadedness, Orthopnea, Palpitations, Syncope - Respiratory Respiratory: absent: Cough, Dyspnea, Dyspnea on Exertion - Gastrointestinal Gastrointestinal: absent: Abdominal Pain, Constipation, Diarrhea, Nausea, Vomiting - Genitourinary Genitourinary: absent: Change in Urinary Stream, Difficulty Urinating - Musculoskeletal Musculoskeletal: absent: Arthralgias, Myalgias, Stiffness, Tingling - Integumentary Integumentary: absent: Lesions, Rash, Wounds - Neurological Neurological: absent: Frequent Falls, Memory Loss, Sensory Deficit, Syncope, Tingling, Tremor, Vertigo, Weakness - Endocrine Endocrine: absent: Cold Intolorance, Heat Intolorance Critical Care Progress Note - Extremities/Vascular Does the Patient have a Central Venous Catheter?: No Does the Patient need a Central Venous Catheter?: No Does the Patient have a Jiménez Catheter?: No Does the Patient need a [place] Catheter?: No - Prophylaxis GI Prophylaxis GI: Not Indicated - Prophylaxis DVT Prophylaxis DVT: Lovenox - Nutrition Nutrition: Nutrition Category Date Time Status Heart Healthy Diet [DIET] Diets 07/16/16 Lunch Active Assessment/Plan (1) NSTEMI (non-ST elevated myocardial infarction) Current Visit: Yes Status: Acute (2) Bradycardia Current Visit: Yes Status: Acute (3) Elevated troponin level Current Visit: Yes Status: Acute (4) CAD (coronary artery disease) Current Visit: Yes Status: Chronic (5) A-fib Current Visit: Yes Status: Chronic (6) Irregular cardiac rhythm Current Visit: No Status: Chronic Comment: EKG on admission showed Atrial fibrillation with rapid ventricular response. Patient's HR currently 60's. Admit to telemetry. ANNABEL negative X1. ASA 325 mg PO given. f/u FLP, HgbA1c, TSH. Will consider cardio consult in the AM. Monitor. - Assessment and Plan (Free Text) Plan: Patient status: -Stable for transfer to [facility] – [place] for PCI Neuro: -A&OX3 -stable Cardiovascular: -For transfer to [facility] [place] for PCI -Dr. Franklin on consult for bradyarrythmia and afib- no indication for pacemaker at this time. R-R interval in a-fib less than 5 seconds -YOBANI score: 6 (41% risk) -NSTEMI (acute)- continue ASA 81mg and sublingual nitro 0.4mg prn -CAD -continue Clopidogrel 75mg -Afib (chronic) -continue ASA 81mg, Lovenox 70mg SC Q12, metoprolol 25mg po bid -[id number] (PO anticoagulation indicated >/= 2) -HASBLED- 3 (high risk for PO anticoagulation) -HTN (currently 144/92) -continue losartan 25mg PO, metoprolol succinate 25mg PO daily -07/16/16 Cardiac Cath- significant stenosis of the mid circumflex artery (80%), borderline stenosis (60-70%) mid-distal RCA -07/16/16 ECG: Afib with slow ventricular response; 58 BPM -07/16/16 ECG: A.fib; 67 BPM -04/08/15 ECHO: LVEF 72%; normal LV systolic function; Normal chamber size; Trace MR; mild TR Pulmonary: -07/16/16 CXR: no active disease; unremarkable. Gastrointestinal: -No acute issues Hematology: -No acute issues Endocrine: -No acute issues Renal: -No acute issues Musculoskeletal: -No acute issues Genitourinary: -No acute issues Infectious disease: -No acute issues GI prophylaxis: Pepcid 20mg PO daily DVT prophylaxis: Lovenox 70mg SC Q12h, SCDs Other prophylaxis: Aspirin 81mg PO daily Case discussed with Dr. Maria Luisa Parham PGY1 - Date & Time Date: 07/17/16 Time: 14:56 <Antonio Glass - Last Filed: 07/17/16 17:45> CCU Objective - Vital Signs / Intake & Output Intake and Output (Last 8hrs): Intake & Output 07/17/16 07/17/16 07/17/16 06:59 14:59 22:59 Intake Total 0 450 Output Total 450 550 Balance -450 -100 Intake: Intake, IV Amount 0 100 Left Forearm 0 100 Oral 0 350 Output: Urine 450 550 Urine, Voided 450 550 Other: # Voids Urine, Voided 1 - Medications Active Medications: Active Medications Generic Name Dose Route Start Last Admin Trade Name Johnnyq PRN Reason Stop Dose Admin Acetaminophen 650 mg 07/17/16 01:42 07/17/16 01:51 Tylenol 325mg Tab PO 650 mg Q4H PRN Administration Headache Aspirin 81 mg 07/17/16 10:00 07/17/16 09:10 Aspirin Chewable PO 81 mg DAILY MICHAEL Administration Clopidogrel Bisulfate 75 mg 07/16/16 10:30 07/17/16 09:10 Plavix PO 75 mg DAILY MICHAEL Administration Enoxaparin Sodium 70 mg 07/16/16 22:00 07/17/16 09:11 Lovenox SC 70 mg Q12 MICHAEL Administration Famotidine 20 mg 07/17/16 10:00 07/17/16 09:10 Pepcid PO 20 mg DAILY MICHAEL Administration Losartan Potassium 25 mg 07/17/16 10:00 07/17/16 09:10 Cozaar PO 25 mg DAILY MICHAEL Administration Metoprolol Succinate 25 mg 07/16/16 10:45 07/17/16 09:10 Toprol Xl PO 25 mg DAILY MICHAEL Administration Nitroglycerin 0.4 mg 07/16/16 10:36 Nitrostat Sl Tab SL Q5M PRN Other Rosuvastatin Calcium 40 mg 07/16/16 22:00 07/16/16 22:47 Crestor PO 40 mg HS MICHAEL Administration - Patient Studies Lab Studies: Lab Studies 07/17/16 07/17/16 07/17/16 Range/Units 06:31 06:31 06:31 WBC 5.0 (4.8-10.8) K/uL RBC 3.98 L (4.40-5.90) Mil/uL Hgb 14.3 (12.0-18.0) g/dL Hct 41.4 (35.0-51.0) % MCV 104.1 H (80.0-94.0) fL MCH 36.0 H (27.0-31.0) pg MCHC 34.6 (33.0-37.0) g/dL RDW 13.5 (11.5-14.5) % Plt Count 154 (130-400) K/uL MPV 7.5 (7.2-11.7) fL Neut % (Auto) 69.2 (50.0-75.0) % Lymph % (Auto) 18.1 L (20.0-40.0) % [place] % (Auto) 11.2 H (0.0-10.0) % Eos % (Auto) 1.1 (0.0-4.0) % Baso % (Auto) 0.4 (0.0-2.0) % Neut # 3.5 (1.8-7.0) K/uL Lymph # 0.9 L (1.0-4.3) K/uL [place] # 0.6 (0.0-0.8) K/uL Eos # 0.1 (0.0-0.7) K/uL Baso # 0.0 (0.0-0.2) K/uL PT 11.3 (9.7-12.2) SECONDS INR 1.0 APTT 40 H (21-34) SECONDS Sodium 136 (132-148) mmol/L Potassium 3.9 (3.6-5.2) mmol/L Chloride 104 (98-107) mmol/L Carbon Dioxide 24 (22-30) mmol/L Anion Gap 12 (10-20) BUN 13 (9-20) mg/dL Creatinine 0.8 (0.8-1.5) MG/DL Est GFR ( Amer) > 60 Est GFR (Non-Af Amer) > 60 Random Glucose 87 (75-110) mg/dL Calcium 8.7 (8.6-10.4) mg/dl Phosphorus 3.3 (2.5-4.5) mg/dL Magnesium 1.9 (1.6-2.3) mg/dL Total Bilirubin 1.0 (0.2-1.3) mg/dL AST 35 (17-59) U/L ALT 24 (21-72) U/L Alkaline Phosphatase 62 (38-126) U/L Total Creatine Kinase (55-170) U/L CK-MB (Mass) (0.0-3.38) ng/mL Troponin I, Quant (0.00-0.120) ng/mL Total Protein 6.5 (6.3-8.3) g/dL Albumin 3.6 (3.5-5.0) g/dL Globulin 2.9 (2.2-3.9) gm/dL Albumin/Globulin Ratio 1.3 (1.0-2.1) 07/16/16 Range/Units 20:01 WBC (4.8-10.8) K/uL RBC (4.40-5.90) Mil/uL Hgb (12.0-18.0) g/dL Hct (35.0-51.0) % MCV (80.0-94.0) fL MCH (27.0-31.0) pg MCHC (33.0-37.0) g/dL RDW (11.5-14.5) % Plt Count (130-400) K/uL MPV (7.2-11.7) fL Neut % (Auto) (50.0-75.0) % Lymph % (Auto) (20.0-40.0) % [place] % (Auto) (0.0-10.0) % Eos % (Auto) (0.0-4.0) % Baso % (Auto) (0.0-2.0) % Neut # (1.8-7.0) K/uL Lymph # (1.0-4.3) K/uL [place] # (0.0-0.8) K/uL Eos # (0.0-0.7) K/uL Baso # (0.0-0.2) K/uL PT (9.7-12.2) SECONDS INR APTT (21-34) SECONDS Sodium (132-148) mmol/L Potassium (3.6-5.2) mmol/L Chloride (98-107) mmol/L Carbon Dioxide (22-30) mmol/L Anion Gap (10-20) BUN (9-20) mg/dL Creatinine (0.8-1.5) MG/DL Est GFR ( Amer) Est GFR (Non-Af Amer) Random Glucose (75-110) mg/dL Calcium (8.6-10.4) mg/dl Phosphorus (2.5-4.5) mg/dL Magnesium (1.6-2.3) mg/dL Total Bilirubin (0.2-1.3) mg/dL AST (17-59) U/L ALT (21-72) U/L Alkaline Phosphatase (38-126) U/L Total Creatine Kinase 95 (55-170) U/L CK-MB (Mass) 1.78 (0.0-3.38) ng/mL Troponin I, Quant 0.3600 H* (0.00-0.120) ng/mL Total Protein (6.3-8.3) g/dL Albumin (3.5-5.0) g/dL Globulin (2.2-3.9) gm/dL Albumin/Globulin Ratio (1.0-2.1) Laboratory Results - last 24 hr 07/16/16 07/17/16 07/17/16 20:01 06:31 06:31 WBC 5.0 RBC 3.98 L Hgb 14.3 Hct 41.4 MCV 104.1 H MCH 36.0 H MCHC 34.6 RDW 13.5 Plt Count 154 MPV 7.5 Neut % (Auto) 69.2 Lymph % (Auto) 18.1 L [place] % (Auto) 11.2 H Eos % (Auto) 1.1 Baso % (Auto) 0.4 Neut # 3.5 Lymph # 0.9 L [place] # 0.6 Eos # 0.1 Baso # 0.0 PT 11.3 INR 1.0 APTT 40 H Sodium Potassium Chloride Carbon Dioxide Anion Gap BUN Creatinine Est GFR ( Amer) Est GFR (Non-Af Amer) Random Glucose Calcium Phosphorus Magnesium Total Bilirubin AST ALT Alkaline Phosphatase Total Creatine Kinase 95 CK-MB (Mass) 1.78 Troponin I, Quant 0.3600 H* Total Protein Albumin Globulin Albumin/Globulin Ratio 07/17/16 06:31 WBC RBC Hgb Hct MCV MCH MCHC RDW Plt Count MPV Neut % (Auto) Lymph % (Auto) [place] % (Auto) Eos % (Auto) Baso % (Auto) Neut # Lymph # [place] # Eos # Baso # PT INR APTT Sodium 136 Potassium 3.9 Chloride 104 Carbon Dioxide 24 Anion Gap 12 BUN 13 Creatinine 0.8 Est GFR ( Amer) > 60 Est GFR (Non-Af Amer) > 60 Random Glucose 87 Calcium 8.7 Phosphorus 3.3 Magnesium 1.9 Total Bilirubin 1.0 AST 35 ALT 24 Alkaline Phosphatase 62 Total Creatine Kinase CK-MB (Mass) Troponin I, Quant Total Protein 6.5 Albumin 3.6 Globulin 2.9 Albumin/Globulin Ratio 1.3 Critical Care Progress Note - Nutrition Nutrition: Nutrition Category Date Time Status Heart Healthy Diet [DIET] Diets 07/16/16 Lunch Active Attending/Attestation - Attestation I have personally seen and examined this patient.: Yes I have fully participated in the care of the patient.: Yes I have reviewed all pertinent clinical information: Yes Notes (Text): 07/17/16 17:44 I have seen and examined the patient. Medical records, lab studies, and imaging were reviewed by me and a management plan was formulated on multidisciplinary rounds with resident Dr. Parham. I agree with their above documented assessment and plan. Patient is clinically stable for downgrade to floors, will discuss with cardiology. Critical Care Time 35 minutes. Multi-disciplinary rounds were performed with house staff, nursing, speech therapy, respiratory therapy, pharmacy and nutrition with integrated input from the primary team/attending and other consulting services. The documented time is cumulative and includes review of patient data/exams/labs/chart review and examination of the patient on rounds and throughout the day; time is exclusive of any procedures or teaching time.
[2016-07-18 06:27] LABS: BASO % 0.3 % (0.0-2.0); EOS # 0.1 K/uL (0.0-0.7); EOS % 1.4 % (0.0-4.0); LYMPH # 0.8 K/uL (1.0-4.3); MEAN CELL VOLUME 104.3 fL (80.0-94.0); MEAN CORPUSCULAR HEMOGLOBIN 36.1 pg (27.0-31.0); MEAN CORPUSCULAR HGB CONC 34.6 g/dL (33.0-37.0); MEAN PLATELET VOLUME 7.8 fL (7.2-11.7); MONO # 0.6 K/uL (0.0-0.8); MONO % 11.7 % (0.0-10.0); NRBC % 0.1 % (0.0-2.0); RED CELL DISTRIBUTION WIDTH 13.3 % (11.5-14.5); WHITE BLOOD COUNT 4.9 K/uL (4.8-10.8)
[2016-07-18 06:40] LABS: CHLORIDE 104 mmol/L (98-107); POTASSIUM 3.9 mmol/L (3.6-5.2); SODIUM 137 mmol/L (132-148)
[2016-07-18 06:42] LABS: GFR AFRICAN-AMERICAN > 60
[2016-07-18 06:43] LABS: ALB/GLOB RATIO 1.1 (1.0-2.1); ALKALINE PHOSPHATASE 60 U/L (38-126); ALT/SGPT 20 U/L (21-72); AST/SGOT 34 U/L (17-59); BLOOD UREA NITROGEN 13 mg/dL (9-20); CARBON DIOXIDE 22 mmol/L (22-30); GLUCOSE,RANDOM 81 mg/dL (75-110); PHOSPHOROUS 3.5 mg/dL (2.5-4.5); TOTAL PROTEIN 6.8 g/dL (6.3-8.3)
[2016-07-18 06:44] LABS: CALCIUM 8.5 mg/dl (8.6-10.4); MAGNESIUM 1.9 mg/dL (1.6-2.3)
[2016-07-18] MEDS ORDERED: Magnesium Sulfate 1 gm in D5W 1 GM/100 ML BAG IVPB ONE (08:07)
--- NOTE | 2016-07-18 08:10 | CP.CCUPN ---
<Juan Parham - Last Filed: 07/18/16 13:17> CCU Subjective - Physician Review Subjective (Free Text): 07/17/16 14:50 Patient seen and examined at the bedside this morning. No acute distress. No acute events overnight. Nursing staff reports no issues. The patient is day 1 s/p cardiac catheterization. The patient is for transfer to [facility] for PCI today. The patient has no complaints this morning. The patient denies fever, chills, headache, chest pain, SOB, abdominal pain, changes in bowel/bladder, and extremity paresthesias. Today on rounds, the patients magnesium was replaced. 07/18/16 08:06 Patient seen and examined at the bedside this morning. No acute distress. No acute events overnight. Nursing staff reports no issues. The patient is day 1 s/p PCI at [facility]. The patient tolerated the procedure well. The patient is clinically and hemodynamically stable this morning. The patient denies all complaints this morning. The patient denies fever, chills, headache, chest pain , SOB, abdominal pain, changes in bowel/bladder, and extremity paresthesias. Today on rounds, the patients magnesium was replaced. Troponins were ordered for trend. Patient medical stable for transfer to the telemetry floor. Critical Care Time Spent (in minutes): 90 CCU Objective - Vital Signs / Intake & Output Vital Signs (Last 4 hours): Vital Signs Pulse Resp BP Pulse Ox 07/18/16 06:07 83 12 135/86 95 07/18/16 05:06 67 13 100/73 94 L Intake and Output (Last 8hrs): Intake & Output 07/17/16 07/18/16 07/18/16 22:59 06:59 14:59 Intake Total 300 Output Total 500 Balance -200 Weight 71.894 kg Intake: Oral 300 Output: Urine 500 Urine, Voided 500 - Physical Exam Head: Positive for: Atraumatic, Normocephalic Pupils: Positive for: PERRL Extroacular Muscles: Positive for: EOMI Conjunctiva: Positive for: Normal Mouth: Positive for: Moist Mucous Membranes. Negative for: Drooling Neck: Positive for: Normal Range of Motion. Negative for: JVD, Lymphadenopathy Respiratory/Chest: Positive for: Clear to Auscultation, Good Air Exchange. Negative for: Respiratory Distress, Accessory Muscle Use, Rales, Rhonchi Cardiovascular: Positive for: Normal S1, S2, Irregular Rhythm. Negative for: Regular Rate and Rhythm, Murmurs, Bradycardic Abdomen: Positive for: Normal Bowel Sounds. Negative for: Tenderness, Distention, Peritoneal Signs, Rebound, Guarding Back: Positive for: Normal Inspection. Negative for: CVA Tenderness Upper Extremity: Positive for: Normal Inspection, Normal ROM, NORMAL PULSES, Neurovascularly Intact. Negative for: Cyanosis, Edema, Tenderness Lower Extremity: Positive for: Normal Inspection, NORMAL PULSES, Normal ROM, Neurovascularly Intact. Negative for: Edema, CALF TENDERNESS, Tenderness Neurological: Positive for: GCS=15, CN II-XII Intact, Speech Normal Skin: Positive for: Warm, Dry, Normal Color. Negative for: Rashes Psychiatric: Positive for: Alert, Oriented x 3 - Medications Active Medications: Active Medications Generic Name Dose Route Start Last Admin Trade Name Freq PRN Reason Stop Dose Admin Acetaminophen 650 mg 07/17/16 01:42 07/17/16 01:51 Tylenol 325mg Tab PO 650 mg Q4H PRN Administration Headache Aspirin 81 mg 07/17/16 10:00 07/17/16 09:10 Aspirin Chewable PO 81 mg DAILY MICHAEL Administration Clopidogrel Bisulfate 75 mg 07/16/16 10:30 07/17/16 09:10 Plavix PO 75 mg DAILY MICHAEL Administration Enoxaparin Sodium 70 mg 07/16/16 22:00 07/17/16 23:19 Lovenox SC 70 mg Q12 MICHAEL Administration Famotidine 20 mg 07/17/16 10:00 07/17/16 09:10 Pepcid PO 20 mg DAILY MICHAEL Administration Losartan Potassium 25 mg 07/17/16 10:00 07/17/16 09:10 Cozaar PO 25 mg DAILY MICHAEL Administration Metoprolol Succinate 25 mg 07/16/16 10:45 07/17/16 09:10 Toprol Xl PO 25 mg DAILY MICHAEL Administration Nitroglycerin 0.4 mg 07/16/16 10:36 Nitrostat Sl Tab SL Q5M PRN Other Rosuvastatin Calcium 40 mg 07/16/16 22:00 07/17/16 23:19 Crestor PO 40 mg HS MICHAEL Administration - Patient Studies Lab Studies: Microbiology Studies 07/16/16 16:51 MRSA Culture (Admit) - Final Nose MRSA NOT DETECTED Lab Studies 07/18/16 07/18/16 07/18/16 Range/Units 06:14 06:14 06:14 WBC 4.9 (4.8-10.8) K/uL RBC 4.13 L (4.40-5.90) Mil/uL Hgb 14.9 (12.0-18.0) g/dL Hct 43.0 (35.0-51.0) % MCV 104.3 H (80.0-94.0) fL MCH 36.1 H (27.0-31.0) pg MCHC 34.6 (33.0-37.0) g/dL RDW 13.3 (11.5-14.5) % Plt Count 163 (130-400) K/uL MPV 7.8 (7.2-11.7) fL Neut % (Auto) 69.6 (50.0-75.0) % Lymph % (Auto) 17.0 L (20.0-40.0) % [place] % (Auto) 11.7 H (0.0-10.0) % Eos % (Auto) 1.4 (0.0-4.0) % Baso % (Auto) 0.3 (0.0-2.0) % Neut # 3.4 (1.8-7.0) K/uL Lymph # 0.8 L (1.0-4.3) K/uL [place] # 0.6 (0.0-0.8) K/uL Eos # 0.1 (0.0-0.7) K/uL Baso # 0.0 (0.0-0.2) K/uL PT 11.4 (9.7-12.2) SECONDS INR 1.0 APTT 51 H D (21-34) SECONDS Sodium 137 (132-148) mmol/L Potassium 3.9 (3.6-5.2) mmol/L Chloride 104 (98-107) mmol/L Carbon Dioxide 22 (22-30) mmol/L Anion Gap 15 (10-20) BUN 13 (9-20) mg/dL Creatinine 0.8 (0.8-1.5) MG/DL Est GFR ( Amer) > 60 Est GFR (Non-Af Amer) > 60 Random Glucose 81 (75-110) mg/dL Calcium 8.5 L (8.6-10.4) mg/dl Phosphorus 3.5 (2.5-4.5) mg/dL Magnesium 1.9 (1.6-2.3) mg/dL Total Bilirubin 1.0 (0.2-1.3) mg/dL AST 34 (17-59) U/L ALT 20 L (21-72) U/L Alkaline Phosphatase 60 (38-126) U/L Total Protein 6.8 (6.3-8.3) g/dL Albumin 3.6 (3.5-5.0) g/dL Globulin 3.2 (2.2-3.9) gm/dL Albumin/Globulin Ratio 1.1 (1.0-2.1) Laboratory Results - last 24 hr 07/18/16 07/18/16 07/18/16 06:14 06:14 06:14 WBC 4.9 RBC 4.13 L Hgb 14.9 Hct 43.0 MCV 104.3 H MCH 36.1 H MCHC 34.6 RDW 13.3 Plt Count 163 MPV 7.8 Neut % (Auto) 69.6 Lymph % (Auto) 17.0 L [place] % (Auto) 11.7 H Eos % (Auto) 1.4 Baso % (Auto) 0.3 Neut # 3.4 Lymph # 0.8 L [place] # 0.6 Eos # 0.1 Baso # 0.0 PT 11.4 INR 1.0 APTT 51 H D Sodium 137 Potassium 3.9 Chloride 104 Carbon Dioxide 22 Anion Gap 15 BUN 13 Creatinine 0.8 Est GFR ( Amer) > 60 Est GFR (Non-Af Amer) > 60 Random Glucose 81 Calcium 8.5 L Phosphorus 3.5 Magnesium 1.9 Total Bilirubin 1.0 AST 34 ALT 20 L Alkaline Phosphatase 60 Total Protein 6.8 Albumin 3.6 Globulin 3.2 Albumin/Globulin Ratio 1.1 Review of Systems - Review of Systems Review of Systems: All systems: reviewed and no additional remarkable complaints except - EENT Eyes: absent: Blind Spots, Blurred Vision Ears: absent: Decreased Hearing, Tinnitus Nose/Mouth/Throat: absent: Nose Pain, Facial Pain, Neck Pain - Cardiovascular Cardiovascular: absent: Chest Pain, Lightheadedness, Orthopnea, Palpitations, Syncope - Respiratory Respiratory: absent: Cough, Dyspnea, Dyspnea on Exertion - Gastrointestinal Gastrointestinal: absent: Abdominal Pain, Constipation, Diarrhea, Nausea, Vomiting - Genitourinary Genitourinary: absent: Change in Urinary Stream, Difficulty Urinating - Musculoskeletal Musculoskeletal: absent: Arthralgias, Myalgias, Stiffness, Tingling - Integumentary Integumentary: absent: Lesions, Rash, Wounds - Neurological Neurological: absent: Frequent Falls, Memory Loss, Sensory Deficit, Syncope, Tingling, Tremor, Vertigo, Weakness - Endocrine Endocrine: absent: Cold Intolorance, Heat Intolorance Critical Care Progress Note - Extremities/Vascular Does the Patient have a Central Venous Catheter?: No Does the Patient need a Central Venous Catheter?: No Does the Patient have a [place] Catheter?: No Does the Patient need a [place] Catheter?: No - Prophylaxis GI Prophylaxis GI: Not Indicated - Prophylaxis DVT Prophylaxis DVT: Lovenox - Nutrition Nutrition: Nutrition Category Date Time Status Heart Healthy Diet [DIET] Diets 07/16/16 Lunch Active Assessment/Plan (1) NSTEMI (non-ST elevated myocardial infarction) Status: Acute (2) Bradycardia Status: Acute (3) Elevated troponin level Status: Acute (4) CAD (coronary artery disease) Status: Chronic (5) A-fib Status: Chronic (6) Irregular cardiac rhythm Status: Chronic Comment: EKG on admission showed Atrial fibrillation with rapid ventricular response. Patient's HR currently 60's. Admit to telemetry. ANNABEL negative X1. ASA 325 mg PO given. f/u FLP, HgbA1c, TSH. Will consider cardio consult in the AM. Monitor. - Assessment and Plan (Free Text) Plan: Patient status: -Stable for transfer to telemetry Neuro: -A&OX3 -stable Cardiovascular: -POD#1 s/p PCI at [facility] -will monitor troponins for down trending -Dr. Franklin on consult for bradyarrythmia and afib- no indication for pacemaker at this time. R-R interval in a-fib less than 5 seconds -NSTEMI (acute)- continue ASA 81mg and sublingual nitro 0.4mg prn -CAD -continue Clopidogrel 75mg -Afib (chronic) -continue ASA 81mg, Lovenox 70mg SC Q12, metoprolol 25mg po bid -[id number] 5 (PO anticoagulation indicated >/= 2) -HASBLED- 3 (high risk for PO anticoagulation) -HTN- losartan 25mg PO, metoprolol succinate 25mg PO daily -07/16/16 Cardiac Cath- significant stenosis of the mid circumflex artery (80%), borderline stenosis (60-70%) mid-distal RCA -07/16/16 ECG: Afib with slow ventricular response; 58 BPM -07/16/16 ECG: A.fib; 67 BPM -04/08/15 ECHO: LVEF 72%; normal LV systolic function; Normal chamber size; Trace MR; mild TR Pulmonary: -07/16/16 CXR: no active disease; unremarkable. Gastrointestinal: -No acute issues Hematology: -No acute issues Endocrine: -No acute issues Renal: -No acute issues Musculoskeletal: -No acute issues Genitourinary: -No acute issues Infectious disease: -No acute issues GI prophylaxis: Pepcid 20mg PO daily DVT prophylaxis: Lovenox 70mg SC Q12h, SCDs Other prophylaxis: Aspirin 81mg PO daily Case discussed with Dr. Dread Parham PGY1 - Date & Time Date: 07/18/16 Time: 08:19 <Johnathan Canada - Last Filed: 07/22/16 18:13> Critical Care Progress Note - Nutrition Nutrition: Nutrition Category Date Time Status Heart Healthy Diet [DIET] Diets 07/16/16 Lunch Active Attending/Attestation - Attestation I have personally seen and examined this patient.: Yes I have fully participated in the care of the patient.: Yes I have reviewed all pertinent clinical information: Yes Notes (Text): The Patient was seen and examined at the bedside, Medical records reviewed, all clinical/lab/hemodynamic/radiographic data were reviewed and management issues were discussed and formulated, Pain issues, skin care, head of the bed elevation, GI/DVT prophylaxis, glycemic control were addressed. I discussed the plan of care with the resident and agree with the above history and physical and assessment/plans as transcribed in Dr. Parham note
[2016-07-18] MEDS: Metoprolol Succinate 25 mg XL Tab PO SCH (10:10)
[2016-07-18] MEDS: Enoxaparin 80 mg Syringe SC SCH (10:10)
--- NOTE | 2016-07-18 11:07 | CP.PCM.PN ---
Subjective - Date & Time of Evaluation Date of Evaluation: 07/18/16 Time of Evaluation: 11:03 - Subjective Subjective: Progress Note for Dr. Franklin Pt seen and examined at bedside. Pt had left mid circumflex artery stent yesterday at [facility]. Pt doing well today with no complaints. Pt has no recent episodes of bradycardia. Denies CP, SOB, N/V/D. Objective - Vital Signs/Intake and Output Vital Signs (last 24 hours): Temp Pulse Resp BP Pulse Ox 97.5 F L 112 H 14 103/66 93 L 07/18/16 08:00 07/18/16 09:06 07/18/16 09:06 07/18/16 09:06 07/18/16 09:06 Intake and Output: 07/18/16 07/18/16 06:59 18:59 Intake Total 300 350 Output Total 500 200 Balance -200 150 - Medications Medications: Current Medications Acetaminophen (Tylenol 325mg Tab) 650 mg PO Q4H PRN PRN Reason: Headache Last Admin: 07/17/16 01:51 Dose: 650 mg Aspirin (Aspirin Chewable) 81 mg PO DAILY [facility] Last Admin: 07/18/16 10:09 Dose: 81 mg Clopidogrel Bisulfate (Plavix) 75 mg PO DAILY [facility] Last Admin: 07/18/16 10:09 Dose: 75 mg Enoxaparin Sodium (Lovenox) 70 mg SC Q12 [facility] Last Admin: 07/18/16 10:10 Dose: 70 mg Famotidine (Pepcid) 20 mg PO DAILY [facility] Last Admin: 07/18/16 10:09 Dose: 20 mg Losartan Potassium (Cozaar) 25 mg PO DAILY [facility] Last Admin: 07/18/16 10:10 Dose: 25 mg Metoprolol Succinate (Toprol Xl) 25 mg PO DAILY [facility] Last Admin: 07/18/16 10:10 Dose: 25 mg Nitroglycerin (Nitrostat Sl Tab) 0.4 mg SL Q5M PRN PRN Reason: Other Rosuvastatin Calcium (Crestor) 40 mg PO HS [facility] Last Admin: 07/17/16 23:19 Dose: 40 mg - Labs Labs: 07/18/16 06:14 07/18/16 06:14 PT 11.4 SECONDS (9.7-12.2) 07/18/16 06:14 INR 1.0 07/18/16 06:14 APTT 51 SECONDS (21-34) H D 07/18/16 06:14 - Constitutional Appears: Well, No Acute Distress - Head Exam Head Exam: ATRAUMATIC, NORMAL INSPECTION, NORMOCEPHALIC - Respiratory Exam Respiratory Exam: Clear to Ausculation Bilateral, NORMAL BREATHING PATTERN. absent: Rales, Rhonchi, Wheezes - Cardiovascular Exam Cardiovascular Exam: RRR, +S1, +S2 - GI/Abdominal Exam GI & Abdominal Exam: Soft, Normal Bowel Sounds. absent: Tenderness - Extremities Exam Extremities Exam: Normal Inspection. absent: Calf Tenderness, Pedal Edema - Neurological Exam Neurological Exam: Alert, Awake, Oriented x3 - Skin Skin Exam: Intact, Normal Color, Warm Assessment and Plan (1) Bradycardia Assessment & Plan: Resolved Likely secondary to acute ischemia of heart due to NSTEMI Status: Acute (2) NSTEMI (non-ST elevated myocardial infarction) Assessment & Plan: Cardiac catheterization yesterday with left mid circumflex artery stent placed Continue ASA and plavix Continue current medical management Status: Acute
--- NOTE | 2016-07-18 11:12 | CP.PCM.PN ---
Subjective - Date & Time of Evaluation Date of Evaluation: 07/18/16 Time of Evaluation: 12:00 - Subjective Subjective: Underwent stent deployment with PCI at [facility] on the circumflex , did well stable post non-ST elevation. Continue medical treatment stable for discharge on double antiplatelets, statin, and beta bess. Objective - Vital Signs/Intake and Output Vital Signs (last 24 hours): Temp Pulse Resp BP Pulse Ox 97.5 F L 112 H 14 103/66 93 L 07/18/16 08:00 07/18/16 09:06 07/18/16 09:06 07/18/16 09:06 07/18/16 09:06 Intake and Output: 07/18/16 07/18/16 06:59 18:59 Intake Total 300 350 Output Total 500 200 Balance -200 150 - Medications Medications: Current Medications Acetaminophen (Tylenol 325mg Tab) 650 mg PO Q4H PRN PRN Reason: Headache Last Admin: 07/17/16 01:51 Dose: 650 mg Aspirin (Aspirin Chewable) 81 mg PO DAILY [facility] Last Admin: 07/18/16 10:09 Dose: 81 mg Clopidogrel Bisulfate (Plavix) 75 mg PO DAILY [facility] Last Admin: 07/18/16 10:09 Dose: 75 mg Enoxaparin Sodium (Lovenox) 70 mg SC Q12 [facility] Last Admin: 07/18/16 10:10 Dose: 70 mg Famotidine (Pepcid) 20 mg PO DAILY [facility] Last Admin: 07/18/16 10:09 Dose: 20 mg Losartan Potassium (Cozaar) 25 mg PO DAILY [facility] Last Admin: 07/18/16 10:10 Dose: 25 mg Metoprolol Succinate (Toprol Xl) 25 mg PO DAILY [facility] Last Admin: 07/18/16 10:10 Dose: 25 mg Nitroglycerin (Nitrostat Sl Tab) 0.4 mg SL Q5M PRN PRN Reason: Other Rosuvastatin Calcium (Crestor) 40 mg PO HS [facility] Last Admin: 07/17/16 23:19 Dose: 40 mg - Labs Labs: 07/18/16 06:14 07/18/16 06:14 PT 11.4 SECONDS (9.7-12.2) 07/18/16 06:14 INR 1.0 07/18/16 06:14 APTT 51 SECONDS (21-34) H D 07/18/16 06:14 - Constitutional Appears: Non-toxic - Head Exam Head Exam: ATRAUMATIC - Eye Exam Eye Exam: EOMI - ENT Exam ENT Exam: Mucous Membranes Moist - Neck Exam Neck Exam: absent: Lymphadenopathy, Thyromegaly - Respiratory Exam Respiratory Exam: Clear to Ausculation Bilateral. absent: Rales - Cardiovascular Exam Cardiovascular Exam: REGULAR RHYTHM, Murmur - GI/Abdominal Exam GI & Abdominal Exam: Normal Bowel Sounds. absent: Organomegaly - Rectal Exam Rectal Exam: Deferred - Extremities Exam Extremities Exam: Normal Capillary Refill. absent: Calf Tenderness - Neurological Exam Neurological Exam: Alert, Oriented x3 - Psychiatric Exam Psychiatric exam: Normal Mood - Skin Skin Exam: Dry Assessment and Plan (1) NSTEMI (non-ST elevated myocardial infarction) Status: Acute (2) A-fib Status: Chronic
--- NOTE | 2016-07-18 11:37 | CP.PCM.PN ---
Subjective - Date & Time of Evaluation Date of Evaluation: 07/18/16 Time of Evaluation: 11:30 - Subjective Subjective: Patient seen and examined at bedside in ICU Patient is comfortable with no complaints of chest pain or palpitation Objective - Vital Signs/Intake and Output Vital Signs (last 24 hours): Temp Pulse Resp BP Pulse Ox 97.5 F L 112 H 14 103/66 93 L 07/18/16 08:00 07/18/16 09:06 07/18/16 09:06 07/18/16 09:06 07/18/16 09:06 Intake and Output: 07/18/16 07/18/16 06:59 18:59 Intake Total 300 350 Output Total 500 200 Balance -200 150 - Medications Medications: Current Medications Acetaminophen (Tylenol 325mg Tab) 650 mg PO Q4H PRN PRN Reason: Headache Last Admin: 07/17/16 01:51 Dose: 650 mg Aspirin (Aspirin Chewable) 81 mg PO DAILY [facility] Last Admin: 07/18/16 10:09 Dose: 81 mg Clopidogrel Bisulfate (Plavix) 75 mg PO DAILY [facility] Last Admin: 07/18/16 10:09 Dose: 75 mg Enoxaparin Sodium (Lovenox) 70 mg SC Q12 [facility] Last Admin: 07/18/16 10:10 Dose: 70 mg Famotidine (Pepcid) 20 mg PO DAILY [facility] Last Admin: 07/18/16 10:09 Dose: 20 mg Losartan Potassium (Cozaar) 25 mg PO DAILY [facility] Last Admin: 07/18/16 10:10 Dose: 25 mg Metoprolol Succinate (Toprol Xl) 25 mg PO DAILY [facility] Last Admin: 07/18/16 10:10 Dose: 25 mg Nitroglycerin (Nitrostat Sl Tab) 0.4 mg SL Q5M PRN PRN Reason: Other Rosuvastatin Calcium (Crestor) 40 mg PO HS [facility] Last Admin: 07/17/16 23:19 Dose: 40 mg - Labs Labs: 07/18/16 06:14 07/18/16 06:14 PT 11.4 SECONDS (9.7-12.2) 07/18/16 06:14 INR 1.0 07/18/16 06:14 APTT 51 SECONDS (21-34) H D 07/18/16 06:14 - Head Exam Head Exam: ATRAUMATIC, NORMOCEPHALIC - Eye Exam Eye Exam: Normal appearance, PERRL - ENT Exam ENT Exam: Mucous Membranes Moist - Respiratory Exam Respiratory Exam: Clear to Ausculation Bilateral. absent: Rales, Rhonchi - Cardiovascular Exam Cardiovascular Exam: REGULAR RHYTHM, +S1, +S2 - Extremities Exam Extremities Exam: absent: Pedal Edema Assessment and Plan (1) Bradycardia Status: Acute (2) HTN (hypertension) Status: Acute (3) NSTEMI (non-ST elevated myocardial infarction) Status: Acute (4) CAD (coronary artery disease) Status: Chronic - Assessment and Plan (Free Text) Plan: Patient is status post cardiac catheterization and PCI. Patient is clear for discharge by cardiology No further episode of bradycardia. Was likely secondary to ischemia I discussed the plan of care with the ICU team and with the manager city Discharge planning to home
--- NOTE | 2016-07-18 12:08 | CARD ---
APPROVED REPORT EKG Measurement Heart [id number] <Conclusion> Atrial fibrillation with slow ventricular response Abnormal ECG
--- NOTE | 2016-07-18 12:08 | CARD ---
APPROVED REPORT EKG Measurement Heart [id number] <Conclusion> Atrial fibrillation with slow ventricular response Abnormal ECG
--- NOTE | 2016-07-18 12:10 | CARD ---
APPROVED REPORT EKG Measurement Heart [id number] <Conclusion> Atrial fibrillation Abnormal ECG
--- NOTE | 2016-07-18 14:23 | PN ---
DATE: 07/18/2016 The patient denies any chest pain. No reported groin bleeding. No reported ventricular arrhythmia. PHYSICAL EXAMINATION: VITAL SIGNS: Blood pressure 103/66, heart rate 112, temperature 97.5, respirations 20. HEENT: Normocephalic. NECK: No JVD. CHEST: Clear. HEART: S1, S2 regular. ABDOMEN: Soft. EXTREMITIES: No edema and no groin hematoma. LABORATORIES: CBC: WBC 4.9, hemoglobin 14.9, hematocrit 43, platelet count 163,000. Today's SMA-7 is within normal limit. Troponin today 0.253. Today's PTT 51, INR is 1.0. ASSESSMENT: 1. Coronary artery disease, status post non-ST elevation myocardial infarction with successful stent ing to the proximal and mid circumflex artery segments with 3.0 mm x 24 mm bare mental stent. 2. Chronic atrial fibrillation. 3. Hypertension. 4. Hyperlipidemia. RECOMMENDATIONS: Case was discussed with the referring steward racetrack, Dr. Robert, and with the [facility] physician, Dr. Nava. The patient can be discharged on aspirin 81 mg once a day, Plavix 75 mg once a day, Xarelto 20 mg once a day. Aspirin and Plavix will be maintained for a month. Following that , the patient can be placed on either one of them besides Xarelto given the fact that the most recent stenting at [facility] has at least 12 months of dual antiplatelet therapy. The case was e xplained to the patient and his partner. I reviewed the scripts that were given to the patient by Dr Sunday Nava and they included Xarelto 20 mg once a day, thiamine 100 mg once a day, Lipitor at 80 mg once a day, Plavix 75 mg once a day, vitamin D, losartan 25 mg once a day, Toprol-XL 25 mg once a day, as pirin 81 mg once a day and sublingual nitroglycerin p.r.n. Jhoan Bangura MD cc: [id number] TT: 07/18/2016 14:23:24 Confirmation # [id number] Dictation # [id number] en
[2016-07-18 14:31] VITALS: TEMP 98.3
[2016-07-18 14:34] VITALS: BP 111/73; PULSE 117; RESP 15; O2SAT 87
== END 2016-07-18 14:25 | disposition home or self-care (01) | DRG 282 ==
LOC: C.ER 06:59 → C.6T 08:56 → C.9I 14:07
PROVIDERS: ADMIT Internal Medicine; ATTEND Internal Medicine
PROC: 4A023N8 Measurement of Cardiac Sampling and Pressure, Bilateral, Percutaneous Approach (ICD-10-PCS; principal; 2016-07-16)
PROC: B2111ZZ Fluoroscopy of Multiple Coronary Arteries using Low Osmolar Contrast (ICD-10-PCS; 2016-07-16)
PROC: B2151ZZ Fluoroscopy of Left Heart using Low Osmolar Contrast (ICD-10-PCS; 2016-07-16)
DX: I21.4 Non-ST elevation (NSTEMI) myocardial infarction (principal); I48.2 Chronic atrial fibrillation; I10 Essential (primary) hypertension; I25.10 Atherosclerotic heart disease of native coronary artery without angina pectoris; E78.5 Hyperlipidemia, unspecified; Z86.73 Personal history of transient ischemic attack (TIA), and cerebral infarction without residual deficits; I25.2 Old myocardial infarction; Z79.02 Long term (current) use of antithrombotics/antiplatelets; Z79.82 Long term (current) use of aspirin; Z95.5 Presence of coronary angioplasty implant and graft